=== PATIENT | male | born 1990 | race Hispanic/Latino ===

== ENCOUNTER 2017-04-25 21:23 | Emergency (ER) | payer MEDICAID ==
[2017-04-25] MEDS ORDERED: HYDR1OIN23 EX (21:36)
[2017-04-25] MEDS ORDERED: ACET1TAB17 PO (21:36)
[2017-04-25] MEDS ORDERED: ATIV1TAB7 PO (21:36)
[2017-04-25] MEDS ORDERED: QUET1TAB10 PO (21:36)
[2017-04-25] MEDS ORDERED: INDE80CA PO (21:36)
[2017-04-25] MEDS ORDERED: CARB300C7 PO (21:36)
[2017-04-25] MEDS ORDERED: ELIM5CRE2 TOP (21:36)
[2017-04-25 21:43] VITALS: BP 130/82
[2017-04-26] MEDS ORDERED: LORazepam 0.5 MG TAB PO ONE (00:30)
== END 2017-04-26 00:44 | disposition home or self-care (01) ==
LOC: M ED 21:23
DX: F43.20 Adjustment disorder, unspecified (principal); F84.0 Autistic disorder; R45.6 Violent behavior; Z79.899 Other long term (current) drug therapy